=== PATIENT | female | born 1960 | race African-American/Black ===

== ENCOUNTER 2018-08-23 08:05 | Emergency (ER) | payer MEDICAID, OTHER ==
[~2018-08-23] VITALS: Ht 162.6 cm; Wt 96.2 kg
[2018-08-23 08:05] VITALS: BP_SYST 136
[2018-08-23] MEDS ORDERED: FLUORESCEIN SODIUM 1 MG OPHTHALMIC STRIP OP ONE ×2 (08:06→09:00)
[2018-08-23] MEDS ORDERED: TETRACAINE (PONTOCAINE) TOPICAL 30 ML SOLUTION TP ONE (08:06)
[2018-08-23] MEDS ORDERED: BALANCED SALT IRRIG SOLN 15 ML IO ONE (08:06)
[2018-08-23 08:39] VITALS: BP_SYST 136
[2018-08-23] MEDS ORDERED: TETRACAINE HCL 0.5% OPHTHALMIC DROPS 15 ML OP ONE (09:00)
== END 2018-08-23 09:26 | disposition home or self-care (01) ==
LOC: SED 08:05
DX: S05.01XA Injury of conjunctiva and corneal abrasion without foreign body, right eye, initial encounter (principal); E11.9 Type 2 diabetes mellitus without complications; E78.00 Pure hypercholesterolemia, unspecified; H01.006 Unspecified blepharitis left eye, unspecified eyelid; H01.003 Unspecified blepharitis right eye, unspecified eyelid; X58.XXXA Exposure to other specified factors, initial encounter; Y93.89 Activity, other specified; Y92.89 Other specified places as the place of occurrence of the external cause; Y99.8 Other external cause status
CPT/HCPCS: 82962; 99283

== ENCOUNTER 2020-01-15 20:38 | Emergency (ER) | payer OTHER ==
[~2020-01-15] VITALS: Ht 162.6 cm; Wt 98.9 kg
[2020-01-15 20:56] VITALS: BP_SYST 160
[2020-01-15 22:18] LABS: BASOPHILS # (AUTO) 0.1 K/uL (0.0-0.2); BASOPHILS % (AUTO) 1.4 % (0.0-2.0); EOSINOPHILS # (AUTO) 0.1 K/uL (0.0-0.4); HEMATOCRIT 42.9 % (36-48); HEMOGLOBIN 14.3 g/dL (12.0-16.0); LYMPHOCYTES # (AUTO) 2.3 K/uL (1.0-5.5); LYMPHOCYTES % (AUTO) 31.8 % (20.5-51.5); MEAN CORPUSCULAR HEMOGLOBIN 29 pg (27-31); MEAN CORPUSCULAR HGB CONC 33 % (32-36); MEAN CORPUSCULAR VOLUME 88 fL (79.0-98.0); MONOCYTES # (AUTO) 0.8 K/uL (0.0-1.0); MONOCYTES % (AUTO) 11.3 % (1.7-9.3); NEUTROPHILS # (AUTO) 3.9 K/uL (1.8-7.7); NEUTROPHILS % (AUTO) 54.5 % (40.0-70.0); PLATELET COUNT (AUTO) 221 K/uL (130-430); RED BLOOD CELL COUNT(AUTO) 4.89 MIL/uL (4.2-6.2); RED CELL DISTRIBUTION WIDTH 14.6 % (9.0-15.0); WHITE BLOOD COUNT (AUTO) 7.2 K/uL (4.8-10.8)
[2020-01-15 22:20] LABS: CALCIUM 8.7 mg/dL (8.4-11.0); CREATININE 1.1 mg/dL (0.55-1.30); POTASSIUM 3.7 mmol/L (3.5-5.1)
[2020-01-15 22:26] LABS: ALBUMIN 3.4 g/dL (3.4-4.8); TOTAL BILIRUBIN 0.3 mg/dL (0.0-1.0)
[2020-01-15 22:30] LABS: INR 0.9 (0.8-1.2); PROTHROMBIN TIME 9.5 SECS (9.5-12.5)
[2020-01-15] MEDS ORDERED: MORPHINE 4 MG/ML INJ. SYRINGE IM ONE (23:30)
[2020-01-16 00:21] VITALS: BP_SYST 187
== END 2020-01-16 00:25 | disposition home or self-care (01) ==
LOC: SED 20:38
DX: R51.9 Headache, unspecified (principal); R10.2 Pelvic and perineal pain; V49.9XXA Car occupant (driver) (passenger) injured in unspecified traffic accident, initial encounter; Y93.89 Activity, other specified; Y92.413 State road as the place of occurrence of the external cause; Y99.8 Other external cause status
CPT/HCPCS: 36415; 70450; 72125; 74176; 80053; 85025; 85610; 96372; 99285; J2270

== ENCOUNTER 2020-03-15 19:12 | Emergency (ER) | payer OTHER, SELFPAY ==
[~2020-03-15] VITALS: Ht 162.6 cm; Wt 96.2 kg
[2020-03-15 19:43] VITALS: BP_SYST 135
[2020-03-15 21:55] VITALS: BP_SYST 135
== END 2020-03-15 21:55 | disposition home or self-care (01) ==
LOC: SED 19:12
DX: J18.9 Pneumonia, unspecified organism (principal); R05 Cough; I10 Essential (primary) hypertension; E11.9 Type 2 diabetes mellitus without complications; E78.00 Pure hypercholesterolemia, unspecified; Z85.3 Personal history of malignant neoplasm of breast; Z20.828 Contact with and (suspected) exposure to other viral communicable diseases
CPT/HCPCS: 36415; 71045; 99284

== ENCOUNTER 2021-06-04 13:23 | Emergency (ER) | payer OTHER, SELFPAY ==
[~2021-06-04] VITALS: Ht 162.6 cm; Wt 90.7 kg
[2021-06-04 13:32] VITALS: BP_SYST 132
[2021-06-04] MEDS ORDERED: ACETAMINOPHEN 500 MG TABLET PO ONE (15:00)
[2021-06-04] MEDS ORDERED: ACET-2634 PO (15:43)
[2021-06-04 16:06] VITALS: BP_SYST 132
== END 2021-06-04 16:06 | disposition home or self-care (01) ==
LOC: SED 13:23
DX: I10 Essential (primary) hypertension (principal); R51.9 Headache, unspecified; Z91.14 Patient's other noncompliance with medication regimen; E11.9 Type 2 diabetes mellitus without complications; Z79.899 Other long term (current) drug therapy
CPT/HCPCS: 70450-TC; 76376; 93005; 99284

== ENCOUNTER 2022-06-25 08:00 | Day surgery (SDC) | payer OTHER ==
[~2022-06-25] VITALS: Ht 162.6 cm; Wt 85.9 kg
[~2022-06-25 08:00] MED LIST: ACET-2634 PO
[2022-06-25] MEDS ORDERED: NORMAL SALINE 10 ML VIAL ONE (09:00)
[2022-06-25] MEDS ORDERED: ISOVUE-300 (IOPAMIDOL) 100 ML INFUS..BTL IV ONE (09:00)
[2022-06-25] MEDS ORDERED: methylPREDNISolone ACETATE 40 MG/ML ONE (09:00)
[2022-06-25] MEDS ORDERED: LIDOCAINE 2%, 20 ML MDV ONE (09:00)
[2022-06-25] MEDS ORDERED: DIPHENHYDRAMINE INJ 50 MG/ML VIAL ONE (11:53)
[2022-06-25] MEDS ORDERED: fentaNYL CITRATE/PF 100 MCG/2 ML AMP ONE (11:53)
[2022-06-25] MEDS: MIDAZOLAM HCL 5 MG/5 ML VIAL ONE ×3 (12:10→12:12)
[2022-06-25 16:50] VITALS: BP_SYST 142
== END 2022-06-25 14:32 | disposition home or self-care (01) ==
LOC: SDS 08:00 → SMU 08:03 → SDS 14:32
PROVIDERS: ATTEND Internal Medicine
DX: M51.16 Intervertebral disc disorders with radiculopathy, lumbar region (principal); Z20.822 Contact with and (suspected) exposure to COVID-19
CPT/HCPCS: 82962; 62323; 36415; 87426; J1200; J2001; J1030; J2250; J3010; Q9967; 76000

== ENCOUNTER 2023-03-18 10:11 | Emergency (ER) | payer OTHER ==
[~2023-03-18] VITALS: Ht 162.6 cm; Wt 90.7 kg
[2023-03-18 10:16] VITALS: BP_SYST 132; PULSE 82; RESP 20; TEMP 97; O2SAT 96
[2023-03-18] MEDS ORDERED: KETOROLAC TROMETHAMINE 30 MG VIAL IM ONE (12:15)
[2023-03-18 12:25] LABS: EOSINOPHILS # (AUTO) 0.1 K/uL (0.0-0.4); EOSINOPHILS % (AUTO) 2.3 % (0.0-4.0); HEMATOCRIT 44.8 % (36-48); HEMOGLOBIN 14.5 g/dL (12.0-16.0); LYMPHOCYTES # (AUTO) 2.6 K/uL (1.0-5.5); LYMPHOCYTES % (AUTO) 55.3 % (20.5-51.5); MEAN CORPUSCULAR HEMOGLOBIN 28 pg (27-31); MEAN CORPUSCULAR HGB CONC 32 % (32-36); MEAN CORPUSCULAR VOLUME 88 fL (79.0-98.0); MONOCYTES # (AUTO) 0.4 K/uL (0.0-1.0); MONOCYTES % (AUTO) 8.2 % (1.7-9.3); NEUTROPHILS # (AUTO) 1.6 K/uL (1.8-7.7); NEUTROPHILS % (AUTO) 33.2 % (40.0-70.0); PLATELET COUNT (AUTO) 254 K/uL (130-430); RED BLOOD CELL COUNT(AUTO) 5.12 MIL/uL (4.2-6.2); RED CELL DISTRIBUTION WIDTH 14.1 % (9.0-15.0); WHITE BLOOD COUNT (AUTO) 4.7 K/uL (4.8-10.8)
[2023-03-18 12:34] LABS: ANION GAP 7 (5-15); CALCIUM 9.5 mg/dL (8.4-11.0); CARBON DIOXIDE 30 mmol/L (23-29); CHLORIDE 103 mmol/L (98-107); CREATININE 1.19 mg/dL (0.55-1.30); GFR AFRICAN AMERICAN 59 mL/min (>90); GLUCOSE 88 mg/dL (74-106); SODIUM SERUM 140 mmol/L (136-145); UREA NITROGEN, BLOOD 19 mg/dL (8-21)
[2023-03-18 12:36] LABS: GFR NON AFRICAN-AMERICAN 49 mL/min (>90)
[2023-03-18 13:05] VITALS: BP_SYST 155; PULSE 88; RESP 16; O2SAT 97
[2023-03-18] MEDS ORDERED: TRAM50TA2 PO (13:05)
[2023-03-18] MEDS ORDERED: NAPR-688 PO (13:05)
== END 2023-03-18 13:05 | disposition home or self-care (01) ==
LOC: SED 10:11
DX: M54.12 Radiculopathy, cervical region (principal); R53.1 Weakness; I10 Essential (primary) hypertension; E11.9 Type 2 diabetes mellitus without complications; M25.562 Pain in left knee; E78.00 Pure hypercholesterolemia, unspecified; Z79.899 Other long term (current) drug therapy
CPT/HCPCS: 99284; 80048; 85025; 84484; 36415; 72040; 73564; 96372; J1885